=== PATIENT | female | born 1990 | race Two or more races ===

== ENCOUNTER 2018-04-28 10:53 | Emergency (ER) | payer SELFPAY ==
[~2018-04-28] VITALS: Ht 162.6 cm; Wt 70.0 kg
[2018-04-28 13:12] VITALS: BP 121/68
== END 2018-04-28 13:14 | disposition home or self-care (01) ==
LOC: EMS 10:55
DX: S61.211A Laceration without foreign body of left index finger without damage to nail, initial encounter (principal); Z88.0 Allergy status to penicillin; W26.0XXA Contact with knife, initial encounter; Y93.89 Activity, other specified; Y92.89 Other specified places as the place of occurrence of the external cause; Y99.8 Other external cause status
CPT/HCPCS: 12001

== ENCOUNTER 2023-02-14 16:45 | Emergency (ER) | payer OTHER ==
[~2023-02-14] VITALS: Ht 162.6 cm; Wt 72.7 kg
[2023-02-14 16:51] VITALS: TEMP 98.4
[2023-02-14 17:25] VITALS: BP 118/64; PULSE 74; RESP 16
[2023-02-14 17:26] LABS: BASOPHILS % (AUTO) 0.6 % (0.0-2.0); EOSINOPHILS % (AUTO) 0.4 % (1.0-6.0); HEMATOCRIT 26.7 % (36-46); HEMOGLOBIN 9.4 g/dL (12.0-16.0); LYMPHOCYTES # (AUTO) 2.6 K/uL (1.0-4.8); LYMPHOCYTES % (AUTO) 31.1 % (22.0-44.0); MEAN CORPUSCULAR HEMOGLOBIN 31.6 pg (26.0-34.0); MEAN CORPUSCULAR HGB CONC 35.2 G/dL (31.0-37.0); MEAN CORPUSCULAR VOLUME 90 fL (80-100); MONOCYTES # (AUTO) 0.4 K/uL (0.1-1.0); MONOCYTES % (AUTO) 5.2 % (2.0-9.0); NEUTROPHILS # (AUTO) 5.2 K/uL (1.8-7.7); NEUTROPHILS % (AUTO) 62.7 % (40.0-70.0); PLATELET COUNT (AUTO) 365 K/uL (150-450); RED BLOOD CELL COUNT(AUTO) 2.97 MIL/uL (4.00-5.20); RED CELL DISTRIBUTION WIDTH 13.6 % (11.5-14.5); WHITE BLOOD COUNT (AUTO) 8.3 K/uL (4.5-11.0)
[2023-02-14 17:37] LABS: CALCIUM, TOTAL 8.6 mg/dL (8.8-10.5); CREATININE 1.07 mg/dL (0.60-1.30)
[2023-02-14 18:06] LABS: ALBUMIN 3.7 g/dL (3.4-5.0); BILIRUBIN,TOTAL 0.2 mg/dL (0.1-1.0); TOTAL PROTEIN, SERUM 7.5 g/dL (6.4-8.2)
== END 2023-02-14 19:23 | disposition left against medical advice (07) ==
LOC: EMS 16:45
DX: O03.4 Incomplete spontaneous abortion without complication (principal); D64.9 Anemia, unspecified; R10.2 Pelvic and perineal pain; Z98.890 Other specified postprocedural states; Z88.0 Allergy status to penicillin
CPT/HCPCS: 80053; 84702; 85025; 86901; 99283